=== PATIENT | male | born 1950 | race Caucasian/White ===

== ENCOUNTER 2019-12-04 06:39 | Day surgery (SDC) | payer BC ==
--- OUTSIDE RECORDS SUMMARY | 2019-11-19 11:11 | XMSREPORT | Referral Summary ---
:1950 Author Organization [facility] s Address [address] [place] [address] Care Team Providers Name Role Phone JonathanMurphy APRN-MANAGEMENT AIDE Attributed Provider Pcp, Primary Care Provider Unavailable Reason for Referral Transitions of Care (Routine) Status Reason Specialty Diagnoses / Referred By Referred To Procedures Contact Contact NOT REQUIRED Patient Diagnoses History of colon polyps Andrea Dunne [facility], [facility] MD Dee Hayden, [address] [place], [address] [facility] [address] [address] Phone: [place] [address] Fax: Reason for Visit Reason Comments Pre-Op Exam colonoscopy Encounter Details Date Type Department Care Team Description 11/08/2019 Office Visit [facility] Andrea Duarte Annu al physical exam (Primary Dx); Clinic Family Kacy lara MD Pre-op evaluation; [address] History of colon polyps; [place] [address] [address] [place] Immunization due; [phone] [id number] Screening, lipid; [phone] Screening for diabetes mellitus; [phone] Benign prostati c hyperplasia, unspecified whether lower urinary tract symptoms present; (Fax) Screening for A AA (abdominal aortic aneurysm) Allergies No Known Allergiesdocumented as of this encounter (statuses as of 11/19/2019) Medications Medication Sig Dispensed Refills Start Date End Date Status fluorouracil (EFUDEX) Apply to the right 40 g 3 09/26/201 9 Active 5 % creamIndications: cheek twice a day AK (actinic keratosis) for 4 weeks mupirocin (BACTROBAN) Apply topically 3 1 Tube 0 08/10/2019 Active 2 % times a day ointmentIndications: Skin infection documented as of this encounter (statuses as of 11/19/2019) Active Problems Problem Noted Date Basal cell carcinoma 10/31/2014 Overview: Left lower ear Right mid back Dysplastic colon polyp 12/25/2012 S/P colonoscopy 12/25/2012 Colon adenomas 11/23/2012 [place] (hard of hearing) 11/23/2012 Hypercholesterolemia 11/23/2012 Skin cancer 11/23/2012 Otosclerosis 11/23/2012 Tobacco abuse 11/23/2012 Actinic keratosis 11/15/2008 documented as of this encounter (statuses as of 11/19/2019) Immunizations Name Administration Dates Next Due H1N1 Vaccine 01/09/2009 HEP B,unspecified 02/17/1993, 09/24/1992, 08/27/1992 Influenza Vaccine 11/30/2018, 01/07/2015, 12/22/2012, 12/02/2010, 12/03/2009 Influenza Vaccine,unspecified 12/19/2017, 12/02/2016, 2015, 12/10/2013, 01/10/2012, 12/22/2007 Pneumococcal Conj PCV13 11/08/2019 TDAP 02/15/2018, 11/23/2007 Zoster Live(Zostavax) 11/23/2012 Zoster Recombinant (Shingrix) 11/08/2019 documented as of this encounter Social History Tobacco Use Types Packs/Day Years Used Date Former Smoker Quit: 10/29/18 89 Smokeless Tobacco: Never Used Alcohol Use Drinks/Week oz/Week Comments No Sex Assigned at Date Recorded Not on file Job Start Date Occupation Industry Not on file Not on file Not on file Travel History Travel Start Travel End No recent travel history available. documented as of this encounter Last Filed Vital Signs Vital Sign Reading Time Taken Comments Blood Pressure 112/84 11/08/2019 3:06 PM CDT Pulse 98 11/08/2019 3:06 PM CDT Temperature 36.7 C (98 F) 11/08/2019 3:06 PM CDT Respiratory Rate - - Oxygen Saturation 96% 11/08/2019 3:06 PM CDT Inhaled Oxygen Concentration - - Weight 82.6 kg (182 lb 1.6 oz) 11/08/2019 3:06 PM CDT Height - - Body Mass Index - - documented in this encounter Functional Status Functional Status Response Date of Assessment Do you have difficulty with walking, balance, climbing No 04/13/2016 stairs, or had a fall in the last 3 months? documented as of this encounter Progress Notes Andrea Dunne MD - 11/08/2019 3:50 PM CDT Assessment / Plan Annual physical exam Pre-op evaluation History of colon polyps Immunization due - PNEUMOCOCCAL CONJ (PREVNAR 13)VACCINE - SHINGRIX (ZOSTER) VACCINE Screening, lipid - LIPID PANEL; Future Screening for diabetes mellitus - GLUCOSE; Future Benign prostatic hyperplasia, unspecified whether lower urinary tract symptoms present - PSA; Future Screening for AAA (abdominal aortic aneurysm) - US ABDOMINAL AORTA; Future Plan: 1with regard to screening laboratory studies, we will set up fasting lipid panel and fasting blood sugar diabetes screen along with PSA. We discussed pros and cons. 2we discussed Medicare aneurysm screen ultrasound and he is agreeable and we'll get that set up as well. 3immunizations are reviewed. He is not started pneumonia vaccine series yet and we'll do his Prevnar 13 today along with his first Shingrix vaccine. Tetanus is current 4we will schedule his colonoscopy. This exam will serve as his preop evaluation. He presents medications to his colonoscopy and should do well. 5discussed is fairly low risk cardiovascular status. No indication for EKG or stress test at this point unless he should develop symptoms of any kind and these are reviewed. HPI / History / ROS HPI This gentleman presents today for complete physical exam also and exam to serve as a preoperative evaluation prior to undergoing an upcoming colonoscopy which he needs to be scheduled. He has been in excellent health overall. His last physical was several years ago. He voices no particular concerns other than does worry a bit about potential cardiovascular disease. He actually has fairly minimal cardiovascular risk factors. He has several uncles with heart disease but no significant first-degree relatives with premature coronary artery disease. His lipids have been good in the past. He does not smoke. He has no hypertension. He is only mildly overweight. He gets regular exercise. Medications Outpatient Medications Prior to Visit Medication Sig Dispense Refill mupirocin (BACTROBAN) 2 % ointment Apply topically 3 times a day 1 Tube 0 fluorouracil (EFUDEX) 5 % cream Apply to the right cheek twice a day for 4 weeks 40 g 3 No facility-administered medications prior to visit. Allergies No Known Allergies Problem List Patient Active Problem List Diagnosis Actinic keratosis Basal cell carcinoma Medical/Surgical/Family/Social History Past Medical History: Diagnosis Date Basal cell carcinoma of skin, site unspecified No past surgical history on file. No family history on file. Social History Socioeconomic History Marital status: Spouse name: Not on file Number of children: 2 Years of education: Not on file Highest education level: Not on file Occupational History Occupation: occ therapist Tobacco Use Smoking status: Former Smoker Last attempt to quit: 10/29/1988 Years since quittin.0 Smokeless tobacco: Never Used Substance and Sexual Activity Alcohol use: No Drug use: No Social History Narrative with 2 children and 5 grandchildren. [place] [facility] [facility] [address] [facility] [place] [facility]. Stays very active. Has been occupational therapist for 43 years. Looking at retiring in the next year or so. ROS Review of Systems Constitutional: Negative for appetite change, chills, fatigue and fever. HENT: Positive for hearing loss (Wears bilateral hearing aids). Negative for congestion, ear discharge, ear pain, sinus pressure and sore throat. Eyes: Negative for visual disturbance. Respiratory: Negative for cough, shortness of breath and wheezing. Cardiovascular: Negative for chest pain, palpitations and leg swelling. Gastrointestinal: Negative for abdominal pain, blood in stool, constipation and diarrhea. Endocrine: Negative for cold intolerance. Genitourinary: Negative for difficulty urinating and frequency. Occasional nocturia and perhaps a little interruption of stream on occasion but nothing consistent Musculoskeletal: Negative for arthralgias, back pain, joint swelling and myalgias. Skin: Negative for rash. Neurological: Negative for dizziness, weakness and headaches. Hematological: Negative for adenopathy. Psychiatric/Behavioral: Negative for agitation, dysphoric mood and sleep disturbance. The patient isnot nervous/anxious. Physical / Results BP 112/84 Pulse 98 Temp 98 F (36.7 C) (Temporal) Wt 82.6 kg (182 lb 1.6 oz) SpO2 96%|| Physical Exam Constitutional: He appears well-developed and well-nourished. HENT: Head: Normocephalic. Right Ear: External ear normal. Left Ear: External ear normal. Nose: Nose normal. Mouth/Throat: Oropharynx is clear and moist. Eyes: Pupils are equal, round, and reactive to light. Right eye exhibits no discharge. Left eye exhibits no discharge. Neck: Normal range of motion. Carotid bruit is not present. No thyromegaly present. Cardiovascular: Normal rate and regular rhythm. No murmur heard. Pulmonary/Chest: No respiratory distress. He has no wheezes. He exhibits no tenderness. Abdominal: He exhibits no distension and no mass. There is no tenderness. Genitourinary: Penis normal. Right testis shows no mass. Left testis shows no mass. Genitourinary Comments: 1+ enlarged prostatesmooth with some loss of median sulcus. Musculoskeletal: Normal range of motion. He exhibits no edema or tenderness. Lymphadenopathy: Head (right side): No submandibular adenopathy present. Head (left side): No submandibular adenopathy present. He has no cervical adenopathy. Right cervical: No superficial cervical and no posterior cervical adenopathy present. Left cervical: No superficial cervical and no posterior cervical adenopathy present. Right axillary: No lateral adenopathy present. Left axillary: No lateral adenopathy present. Right: No inguinal adenopathy present. Left: No inguinal adenopathy present. Neurological: He is alert. He displays normal reflexes. Coordination normal. Skin: Skin is warm and dry. No rash noted. Psychiatric: He has a normal mood and affect. His behavior is normal. Vitals reviewed. documented in this encounter Plan of Treatment Date Type Specialty Care Team Description 11/20/2019 Appointment Vascular Services Filipe Kilpatrick MD [address] 11/22/2019 Office Visit Dermatology Caleb Schneider MD [address] 01/03/2020 Nurse Only Family Practice Name Type Priority Associated Diagnoses Order S chedule US ABDOMINAL AORTA Imaging Routine Screening for AAA Expe cted: 11/08/2019 (abdominal aortic (Approxima te), Expires: aneurysm) 12/08/2020 Name Type Priority Associated Diagnoses Order S [facility] REFERRAL Referral Routine History of colon polyps O rdered: 11/08/2019 ENDOSCOPY NON ONE CHART documented as of this encounter Results PSA (11/12/2019 9:13 AM CDT) Pathologist Sig nature PSA 6.55 (H) 0.00 - 4.50 ng/mL [facility] Specimen Blood Narrative Performed At PSA was measured using the Foster method. [facility] Results measured using different testing methods cannot be directly compared. Performing Organization Address [facility] Phone Number [facility] [address] [place], [place] [address] LABORATORY GLUCOSE (11/12/2019 9:13 AM CDT) Pathologist Sig nature Glucose 91 70 - 100 mg/dL [facility] Specimen Blood Performing Organization Address [facility] Phone Number [facility] [address] [place], [place] [address] LABORATORY LIPID PANEL (11/12/2019 9:13 AM CDT) Pathologist Sig nature Cholesterol 214 (H) 100 - 200 mg/dL [facility] Triglyceride 130 50 - 150 mg/dL [facility] HDL 41 40 - 80 mg/dL [facility] LDL 147 (H) 0 - 129 mg/dL [facility] Specimen Blood Performing Organization Address [facility] Phone Number [facility] [address] [place], [place] [address] LABORATORY documented in this encounter Visit Diagnoses Diagnosis Annual physical exam - Primary Routine general medical examination at a health care facility Pre-op evaluation Preoperative examination, unspecified History of colon polyps Personal history of colonic polyps Immunization due Need for prophylactic vaccination and in oculation against unspecified single disease Screening, lipid Screening for lipoid disorders Screening for diabetes mellitus Benign prostatic hyperplasia, unspecifie d whether lower urinary tract symptoms present Screening for AAA (abdominal aortic aneu rysm) Screening for other and unspecified card iovascular conditions documented in this encounter"
[2019-12-04] MEDS ORDERED: Sodium Chloride 0.9% 1,000 ML IV SCH (07:00)
[2019-12-04] MEDS ORDERED: Propofol 200 MG/20 ML SDV ONE (07:27)
[2019-12-04] MEDS ORDERED: Midazolam 1 MG/ML 2 ML SDV ONE (07:27)
[2019-12-04] MEDS ORDERED: fentaNYL 100 MCG/2 ML SDV ONE (07:27)
[2019-12-04 09:09] VITALS: BP 110/75; PULSE 61
--- NOTE | 2019-12-04 13:30 | OR ---
DATE OF PROCEDURE: 12/04/2019 SURGEON: Enzo Seaman MD PROCEDURE: Colonoscopy. FINDINGS: 1. Diverticulosis, very mild without evidence of diverticulitis or bleeding. 2. No other gross abnormalities. COMPLICATIONS: None. CUSTODY OFFICER: None. ANESTHESIA: MAC. PREOPERATIVE DIAGNOSIS: Screening colonoscopy/history of colon polyps. POSTOPERATIVE DIAGNOSIS: Screening colonoscopy/history of colon polyps. RISKS: Risks, benefits, alternatives, and limitations including, but not limited to infection, bleeding, and perforation were explained to the patient who wished to proceed. PROCEDURE IN DETAIL: The patient was placed in left lateral decubitus position. Digital rectal exam was performed without abnormality. Scope was introduced and advanced atraumatically to the ileocecal valve. A photo was taken of this. The scope was brought back to the ascending, transverse, descending colon, and retroflexed. No evidence of old or new blood. No masses. No polyps. No colitis. The prep was acceptable with greater than 90% of the luminal surface could be seen. Some solid and liquid stool was remaining which was addressed through suction and irrigation. No abnormalities on retroflexion. Greater than 10 minutes was used to remove the scope. The patient tolerated the procedure well. Enzo Seaman MD /[id number]
== END 2019-12-04 08:57 | disposition home or self-care (01) ==
LOC: JP.SDS 06:39
PROVIDERS: ATTEND Surgery
DX: Z12.11 Encounter for screening for malignant neoplasm of colon (principal); K57.30 Diverticulosis of large intestine without perforation or abscess without bleeding; Z86.010 Personal history of colon polyps
CPT/HCPCS: 45378; J2250; J2704; J3010; J7030